=== PATIENT | male | born 1960 | race Caucasian/White ===

== ENCOUNTER 2018-05-10 00:43 | Inpatient (IN) | payer BC ==
[~2018-05-10] VITALS: Ht 170.2 cm; Wt 86.0 kg
[2018-05-10] VITALS (26 sets, daily range): BP systolic 105–136; BP diastolic 57–87
[2018-05-10] MEDS ORDERED: LORazepam 2MG/ML-1ML VIAL ONE (00:59)
[2018-05-10] MEDS ORDERED: LORazepam 2MG/ML-1ML VIAL IV ONE (01:00)
[2018-05-10] MEDS ORDERED: ASPirin 81 mg TAB ONE (01:03)
[2018-05-10] MEDS ORDERED: ENOXAPARIN SOD 100 MG/1 ML SYRINGE SC ONE (01:04)
[2018-05-10] MEDS ORDERED: ONDANSETRON HCL 4 MG/2 ML VIAL ONE ×2 (01:06→04:15)
[2018-05-10] MEDS ORDERED: MORPHINE SULFATE 4 MG/ML SYR/VIAL ONE (01:06)
[2018-05-10] MEDS ORDERED: AMIODARONE HCL 900 MG IV ONE ×2 (01:19→23:18)
[2018-05-10] MEDS ORDERED: IODIXANOL 320MG/ML 100ML BTL IV ONE ×2 (01:27→02:20)
[2018-05-10] MEDS ORDERED: LIDOCAINE 2%HCL (LOCAL ANESTH.) INJ 10ml MDV ONE (01:27)
[2018-05-10] MEDS ORDERED: MIDAZOLAM HCL 1MG/1ML-2 ML VIAL ONE (01:29)
[2018-05-10] MEDS ORDERED: ATROPINE SULF 1 MG/10ml SYR ONE (01:29)
[2018-05-10] MEDS ORDERED: ANGIOMAX 250 MG VIAL IV ONE (01:29)
[2018-05-10] MEDS ORDERED: fentaNYL CITRATE 100 MCG/2 ML VL ONE (01:29)
[2018-05-10] MEDS ORDERED: SODIUM CHL 0.9% 50 ML ONE (01:29)
[2018-05-10] MEDS ORDERED: EPINEPHrine HCL 1 MG/10 ML SYRG ONE (01:29)
[2018-05-10] MEDS ORDERED: ENOXAPARIN SOD 60 MG/0.6 ML SYRINGE SC ONE (01:30)
[2018-05-10] MEDS ORDERED: AMIODARONE HCL 150 MG in D5W 5% 100 ML IV ONE (01:30)
[2018-05-10] MEDS ORDERED: AMIODARONE HCL 900 MG in DEXTROSE 500 ML IV SCH ×2 (01:30→07:30)
[2018-05-10] MEDS ORDERED: ENOXAPARIN SOD 30 MG/0.3 ML SYRINGE IV ONE (01:30)
[2018-05-10 01:33] LABS: INR 0.91 (0.9-1.15); Partial Thromboplastin Time 24.2 sec (23.78-33.04); Prothrombin Time 9.8 sec (9.27-12.13)
[2018-05-10 01:36] LABS: Albumin 3.2 g/dL (3.4-5.0); BUN/Creatinine Ratio 13.3; Calcium 8.3 mg/dL (8.5-10.1); Magnesium 2.2 mg/dL (1.6-2.6); Potassium 3.5 mmol/L (3.5-5.1)
[2018-05-10 01:42] LABS: Bilirubin, Total 0.3 mg/dL (0.2-1.0)
[2018-05-10 01:43] LABS: Basophils # (auto) 0 uL; Basophils % (auto) 0.3 % (0.0-2.0); Eosinophils # (auto) 0.2 uL; Eosinophils % (auto) 1.6 % (0.0-7.0); Hematocrit 44.1 % (41.0-53.0); Hemoglobin 14.6 g/dL (13.5-17.5); Lymphocytes % (auto) 54.2 % (10.0-50.0); Mean Corpuscular Hemoglobin 28.1 pg (28.0-32.0); Monocytes # (auto) 0.7 uL; Monocytes % (auto) 5.3 % (0.0-12.0); Neutrophils % (auto) 38.6 % (37.0-80.0); Nucleated Red Blood Cells % 0.1 %; Platelet Count (auto) 196 10^3/uL (140-450); Red Blood Cells 5.19 10^6/uL (4.5-5.90); Red Cell Distribution Width 14.4 % (11.8-14.3); White Blood Cell 12.9 10^3/uL (4.4-10.8)
[2018-05-10] MEDS: ONDANSETRON HCL 4 MG/2 ML VIAL ONE (01:53)
[2018-05-10] MEDS ORDERED: LIDOCAINE HCL 100 MG/5ML (2%) SYRG INJ IV ONE ×2 (02:02→18:14)
[2018-05-10] MEDS ORDERED: EPTIFIBATIDE INJ (2MG/ML) 10ML VIAL IV ONE (02:03)
[2018-05-10] MEDS ORDERED: ADENOSINE 6 MG/2 ML INJ IV ONE (02:04)
[2018-05-10] MEDS ORDERED: DOPamine 1600MCG/ML D5W 0 ML IV ONE (02:07)
[2018-05-10] MEDS ORDERED: TICAGRELOR 90 MG TAB ONE (02:48)
[2018-05-10] MEDS ORDERED: HEPARIN DRIP/D5W 100UNITS/ML 250 ML IV SCH (03:24)
[2018-05-10] MEDS ORDERED: DOCUSATE SOD 100 MG CAP PO PRN (03:30)
[2018-05-10 04:11] LABS: Basophils # (auto) 0 uL; Basophils % (auto) 0.3 % (0.0-2.0); Eosinophils # (auto) 0 uL; Eosinophils % (auto) 0.4 % (0.0-7.0); Hematocrit 41.4 % (41.0-53.0); Hemoglobin 13.4 g/dL (13.5-17.5); Lymphocytes # (auto) 1.3 uL; Lymphocytes % (auto) 13.2 % (10.0-50.0); Mean Corpuscular Hemoglobin 27.8 pg (28.0-32.0); Mean Corpuscular Hgb Conc. 32.5 g/dL (32.0-36.0); Mean Corpuscular Volume 85.6 fL (80.0-100.0); Monocytes # (auto) 0.4 uL; Monocytes % (auto) 3.8 % (0.0-12.0); Neutrophils % (auto) 82.3 % (37.0-80.0); Platelet Count (auto) 133 10^3/uL (140-450); Red Blood Cells 4.83 10^6/uL (4.5-5.90); Red Cell Distribution Width 14.2 % (11.8-14.3); White Blood Cell 9.8 10^3/uL (4.4-10.8)
[2018-05-10] MEDS ORDERED: ONDANSETRON HCL 4 MG/2 ML VIAL IV PRN (04:15)
[2018-05-10 04:28] LABS: BUN/Creatinine Ratio 14.8; Calcium 7.8 mg/dL (8.5-10.1); Potassium 4.1 mmol/L (3.5-5.1)
[2018-05-10 04:31] LABS: INR 1.77 (0.9-1.15); Prothrombin Time 18.3 sec (9.27-12.13)
[2018-05-10 04:39] LABS: Partial Thromboplastin Time 83.6 sec (23.78-33.04)
[2018-05-10] MEDS: ceFAZolin 1GM/50ML 50 ML IV SCH ×3 (07:26→21:56)
[2018-05-10] MEDS: HEPARIN DRIP/D5W 100UNITS/ML 250 ML IV SCH (08:54)
[2018-05-10] MEDS: ASPirin-EC 81 mg tab PO SCH (09:39)
[2018-05-10] MEDS: TICAGRELOR 90 MG TAB PO SCH ×2 (09:39→21:56)
[2018-05-10] MEDS: ACETAMINOPHEN 325 MG TAB PO PRN ×2 (09:39→20:00)
[2018-05-10] MEDS: FAMOTIDINE (10MG/ML) 2ML VL IV SCH ×2 (09:39→21:56)
[2018-05-10] MEDS: MORPHINE SULFATE 4 MG/ML SYR/VIAL IV PRN ×2 (11:00→13:47)
[2018-05-10] MEDS ORDERED: LORazepam 2MG/ML-1ML VIAL IV PRN (14:00)
[2018-05-10] MEDS: HYDROcodone-ACET 5/325MG TAB PO PRN ×2 (14:25→21:57)
[2018-05-10] MEDS ORDERED: AMIODARONE HCL (50 MG/ ML) 3 ML VIAL IV ONE (18:14)
[2018-05-10] MEDS ORDERED: DIGOXIN (250MCG/ML) 2 ML AMPULE IV ONE (19:00)
[2018-05-10] MEDS ORDERED: ATORVASTATIN 20 MG TAB PO SCH (22:00)
[2018-05-10 23:21] LABS: INR 0.93 (0.9-1.15); Partial Thromboplastin Time 28.9 sec (23.78-33.04)
[2018-05-11] VITALS (96 sets, daily range): BP systolic 97–143; BP diastolic 64–97
[2018-05-11] MEDS: ceFAZolin 1GM/50ML 50 ML IV SCH ×3 (05:22→22:00)
[2018-05-11 07:30] LABS: Basophils # (auto) 0.1 uL; Basophils % (auto) 0.7 % (0.0-2.0); Eosinophils # (auto) 0.1 uL; Eosinophils % (auto) 0.9 % (0.0-7.0); Hematocrit 41.3 % (41.0-53.0); Hemoglobin 13.6 g/dL (13.5-17.5); Lymphocytes # (auto) 2.1 uL; Lymphocytes % (auto) 22.1 % (10.0-50.0); Mean Corpuscular Hemoglobin 28.2 pg (28.0-32.0); Mean Corpuscular Volume 85.5 fL (80.0-100.0); Monocytes # (auto) 0.7 uL; Neutrophils # (auto) 6.5 uL; Neutrophils % (auto) 69.3 % (37.0-80.0); Nucleated Red Blood Cells % 0.1 %; Platelet Count (auto) 129 10^3/uL (140-450); Red Blood Cells 4.83 10^6/uL (4.5-5.90); Red Cell Distribution Width 14.4 % (11.8-14.3); White Blood Cell 9.4 10^3/uL (4.4-10.8)
[2018-05-11 07:38] LABS: INR 0.93 (0.9-1.15); Partial Thromboplastin Time 28.1 sec (23.78-33.04)
[2018-05-11 07:48] LABS: BUN/Creatinine Ratio 11.5; Calcium 8.2 mg/dL (8.5-10.1); Potassium 3.6 mmol/L (3.5-5.1)
[2018-05-11] MEDS: HEPARIN DRIP/D5W 100UNITS/ML 250 ML IV SCH (08:33)
[2018-05-11] MEDS: FAMOTIDINE (10MG/ML) 2ML VL IV SCH ×2 (10:03→21:46)
[2018-05-11] MEDS: TICAGRELOR 90 MG TAB PO SCH ×2 (10:05→21:47)
[2018-05-11] MEDS: ASPirin-EC 81 mg tab PO SCH (10:05)
[2018-05-11] MEDS ORDERED: AMIODARONE HCL 900 MG in DEXTROSE 500 ML IV SCH (13:30)
[2018-05-11] MEDS: HYDROcodone-ACET 5/325MG TAB PO PRN ×2 (16:17→20:18)
[2018-05-11] MEDS: PRAVASTATIN SODIUM 20 MG TAB PO SCH (21:47)
[2018-05-11] MEDS ORDERED: AMIODARONE HCL 200 MG TAB ONE (22:44)
[2018-05-11] MEDS ORDERED: AMIODARONE HCL 200 MG TAB PO ONE (22:45)
[2018-05-12] VITALS (38 sets, daily range): BP systolic 99–130; BP diastolic 59–84
[2018-05-12] MEDS ORDERED: MIDAZOLAM HCL 1MG/1ML-2 ML VIAL ONE ×2 (01:38→01:54)
[2018-05-12] MEDS ORDERED: LIDOCAINE 2% (LOCAL ANESTH.) PF 5ml SDV ONE (01:38)
[2018-05-12 04:09] LABS: Calcium 8.1 mg/dL (8.5-10.1); INR 0.97 (0.9-1.15); Partial Thromboplastin Time 27.6 sec (23.78-33.04); Potassium 3.7 mmol/L (3.5-5.1); Prothrombin Time 10.4 sec (9.27-12.13)
[2018-05-12 04:11] LABS: BUN/Creatinine Ratio 11.8; Basophils # (auto) 0 uL; Basophils % (auto) 0.2 % (0.0-2.0); Eosinophils # (auto) 0.1 uL; Eosinophils % (auto) 0.9 % (0.0-7.0); Hematocrit 39.6 % (41.0-53.0); Hemoglobin 13.4 g/dL (13.5-17.5); Lymphocytes % (auto) 26.9 % (10.0-50.0); Mean Corpuscular Hemoglobin 28.6 pg (28.0-32.0); Mean Corpuscular Hgb Conc. 33.8 g/dL (32.0-36.0); Mean Corpuscular Volume 84.6 fL (80.0-100.0); Monocytes # (auto) 0.6 uL; Monocytes % (auto) 7.5 % (0.0-12.0); Neutrophils # (auto) 4.8 uL; Neutrophils % (auto) 64.5 % (37.0-80.0); Nucleated Red Blood Cells % 0.3 %; Red Blood Cells 4.68 10^6/uL (4.5-5.90); Red Cell Distribution Width 14.2 % (11.8-14.3); White Blood Cell 7.4 10^3/uL (4.4-10.8)
[2018-05-12 04:12] LABS: Platelet Count (auto) 119 10^3/uL (140-450)
[2018-05-12] MEDS: HYDROcodone-ACET 5/325MG TAB PO PRN (04:20)
[2018-05-12] MEDS: ceFAZolin 1GM/50ML 50 ML IV SCH ×3 (05:27→22:43)
[2018-05-12] MEDS: ASPirin-EC 81 mg tab PO SCH (10:03)
[2018-05-12] MEDS: FAMOTIDINE (10MG/ML) 2ML VL IV SCH ×2 (10:03→22:43)
[2018-05-12] MEDS: TICAGRELOR 90 MG TAB PO SCH ×2 (10:04→22:44)
[2018-05-12] MEDS: AMIODARONE HCL 200 MG TAB PO SCH ×2 (10:55→22:44)
[2018-05-12] MEDS: PRAVASTATIN SODIUM 20 MG TAB PO SCH (22:44)
[2018-05-13 05:05] VITALS: BP 117/70
[2018-05-13] MEDS: ceFAZolin 1GM/50ML 50 ML IV SCH (05:33)
[2018-05-13 05:43] LABS: Basophils # (auto) 0 uL; Basophils % (auto) 0.4 % (0.0-2.0); Eosinophils # (auto) 0.1 uL; Eosinophils % (auto) 1.1 % (0.0-7.0); Hematocrit 41.9 % (41.0-53.0); Hemoglobin 14.3 g/dL (13.5-17.5); Lymphocytes # (auto) 1.6 uL; Lymphocytes % (auto) 17.8 % (10.0-50.0); Mean Corpuscular Hgb Conc. 34.2 g/dL (32.0-36.0); Mean Corpuscular Volume 84.7 fL (80.0-100.0); Monocytes # (auto) 0.6 uL; Monocytes % (auto) 6.3 % (0.0-12.0); Neutrophils # (auto) 6.6 uL; Neutrophils % (auto) 74.4 % (37.0-80.0); Nucleated Red Blood Cells % 0.4 %; Platelet Count (auto) 133 10^3/uL (140-450); Red Blood Cells 4.95 10^6/uL (4.5-5.90); Red Cell Distribution Width 14.4 % (11.8-14.3); White Blood Cell 8.9 10^3/uL (4.4-10.8)
[2018-05-13 05:55] LABS: INR 0.96 (0.9-1.15); Partial Thromboplastin Time 28.5 sec (23.78-33.04); Prothrombin Time 10.3 sec (9.27-12.13)
[2018-05-13 06:01] LABS: BUN/Creatinine Ratio 13.3; Calcium 8.2 mg/dL (8.5-10.1); Potassium 3.7 mmol/L (3.5-5.1)
[2018-05-13 08:00] VITALS: BP 108/70
[2018-05-13 08:16] VITALS: BP 104/63
[2018-05-13] MEDS: FAMOTIDINE (10MG/ML) 2ML VL IV SCH ×2 (10:10→22:12)
[2018-05-13] MEDS: TICAGRELOR 90 MG TAB PO SCH ×2 (10:10→22:12)
[2018-05-13] MEDS: AMIODARONE HCL 200 MG TAB PO SCH ×2 (10:13→22:12)
[2018-05-13] MEDS: ASPirin-EC 81 mg tab PO SCH (10:13)
[2018-05-13 12:48] VITALS: BP 113/58
[2018-05-13 16:18] VITALS: BP 111/72
[2018-05-13] MEDS ORDERED: POTASSIUM CHL 20 Meq TABLET PO ONE (17:30)
[2018-05-13] MEDS ORDERED: ATORVASTATIN 20 MG TAB PO SCH (22:00)
[2018-05-13 23:12] VITALS: BP 111/71
[2018-05-14 04:06] VITALS: BP 107/72
[2018-05-14 09:23] VITALS: BP 109/71
[2018-05-14] MEDS: AMIODARONE HCL 200 MG TAB PO SCH (10:07)
[2018-05-14] MEDS: FAMOTIDINE (10MG/ML) 2ML VL IV SCH (10:07)
[2018-05-14] MEDS: ASPirin-EC 81 mg tab PO SCH (10:07)
[2018-05-14] MEDS: TICAGRELOR 90 MG TAB PO SCH (10:08)
[2018-05-14 13:00] VITALS: BP 106/73
[2018-05-14] MEDS ORDERED: CLOPIDOGREL 300 MG TAB PO ONE (14:45)
[2018-05-14 16:41] VITALS: BP 106/73
[2018-05-14 17:29] VITALS: BP 107/70
[2018-05-15] MEDS ORDERED: MORPHINE SULFATE 4 MG/ML SYR/VIAL IV ONE (13:30)
== END 2018-05-14 17:19 | disposition home or self-care (01) | DRG 270 ==
LOC: ER 00:43 → OVERFLOW 00:44 → TELE-WESTW 01:40 → ICU WEST 03:07 → TELE-WESTW 05-12 21:05
PROVIDERS: ADMIT Specialist; ATTEND Hospitalist
PROC: 02C03ZZ Extirpation of Matter from Coronary Artery, One Artery, Percutaneous Approach (ICD-10-PCS; principal; 2018-05-10)
PROC: 5A02210 Assistance with Cardiac Output using Balloon Pump, Continuous (ICD-10-PCS; 2018-05-10)
PROC: 027035Z Dilation of Coronary Artery, One Artery with Two Drug-eluting Intraluminal Devices, Percutaneous Approach (ICD-10-PCS; 2018-05-10)
PROC: 3E073PZ Introduction of Platelet Inhibitor into Coronary Artery, Percutaneous Approach (ICD-10-PCS; 2018-05-10)
PROC: 4A023N7 Measurement of Cardiac Sampling and Pressure, Left Heart, Percutaneous Approach (ICD-10-PCS; 2018-05-10)
PROC: B2111ZZ Fluoroscopy of Multiple Coronary Arteries using Low Osmolar Contrast (ICD-10-PCS; 2018-05-10)
DX: I21.09 ST elevation (STEMI) myocardial infarction involving other coronary artery of anterior wall (principal); I49.01 Ventricular fibrillation; J96.21 Acute and chronic respiratory failure with hypoxia; R57.0 Cardiogenic shock; N17.9 Acute kidney failure, unspecified; F17.210 Nicotine dependence, cigarettes, uncomplicated; F10.20 Alcohol dependence, uncomplicated; M54.9 Dorsalgia, unspecified; I10 Essential (primary) hypertension; I25.10 Atherosclerotic heart disease of native coronary artery without angina pectoris; I25.82 Chronic total occlusion of coronary artery; I48.91 Unspecified atrial fibrillation; J44.9 Chronic obstructive pulmonary disease, unspecified; I25.2 Old myocardial infarction; Z79.899 Other long term (current) drug therapy; Z79.82 Long term (current) use of aspirin
CPT/HCPCS: 33967; 36415; 71045; 80048; 80053; 82962; 83735; 83880; 84484; 85025; 85379; 85610; 85730; 87081; 87086; 92928; 92973; 93005; 93306; 93458; 96365; 96375; 99152; 99291; A6257; C1874; G0378; J0153; J0690; J2001; J2250; J2405; J3490; J7060; Q9967

== ENCOUNTER 2018-05-18 13:18 | Emergency (ER) | payer SELFPAY ==
[~2018-05-18] VITALS: Ht 182.9 cm; Wt 79.4 kg
[2018-05-18] MEDS ORDERED: MORPHINE SULFATE 4 MG/ML SYR/VIAL IV ONE (13:30)
[2018-05-18] MEDS ORDERED: ONDANSETRON HCL 4 MG/2 ML VIAL IV ONE (13:30)
[2018-05-18 14:02] LABS: Basophils # (auto) 0 uL; Basophils % (auto) 0.6 % (0.0-2.0); Eosinophils # (auto) 0.1 uL; Eosinophils % (auto) 1.8 % (0.0-7.0); Hematocrit 43.1 % (41.0-53.0); Lymphocytes # (auto) 2.6 uL; Lymphocytes % (auto) 37.5 % (10.0-50.0); Mean Corpuscular Hemoglobin 27.5 pg (28.0-32.0); Mean Corpuscular Hgb Conc. 32.6 g/dL (32.0-36.0); Mean Corpuscular Volume 84.3 fL (80.0-100.0); Monocytes # (auto) 0.4 uL; Monocytes % (auto) 6.3 % (0.0-12.0); Neutrophils # (auto) 3.8 uL; Neutrophils % (auto) 53.8 % (37.0-80.0); Nucleated Red Blood Cells % 0.1 %; Platelet Count (auto) 208 10^3/uL (140-450); Red Blood Cells 5.11 10^6/uL (4.5-5.90)
[2018-05-18 14:19] LABS: Albumin 3.3 g/dL (3.4-5.0); Calcium 8.4 mg/dL (8.5-10.1); Magnesium 2.4 mg/dL (1.6-2.6); Potassium 4.1 mmol/L (3.5-5.1)
[2018-05-18 14:20] LABS: INR 1.03 (0.9-1.15)
[2018-05-18 14:23] LABS: BUN/Creatinine Ratio 16.2; Bilirubin, Total 0.5 mg/dL (0.2-1.0); Total Protein 7.4 g/dL (6.4-8.2)
[2018-05-18 15:04] VITALS: BP 104/70
[2018-05-18] MEDS ORDERED: SODIUM CHLORIDE 0.9% 500 ML IV ONE (16:45)
== END 2018-05-18 17:06 | disposition home or self-care (01) ==
LOC: ER 13:20
DX: I24.9 Acute ischemic heart disease, unspecified (principal); R79.89 Other specified abnormal findings of blood chemistry; I25.2 Old myocardial infarction; J44.9 Chronic obstructive pulmonary disease, unspecified; I10 Essential (primary) hypertension; E78.5 Hyperlipidemia, unspecified; F17.210 Nicotine dependence, cigarettes, uncomplicated; Z98.61 Coronary angioplasty status
CPT/HCPCS: 36415; 71045; 80053; 83735; 83880; 84484; 85025; 85610; 85730; 93005; 94761; 96374; 96375; 99285; J2270; J2405; J7040; 96361

== ENCOUNTER 2019-06-01 20:12 | Emergency (ER) | payer MEDICAID, OTHER ==
[~2019-06-01] VITALS: Ht 182.9 cm; Wt 81.6 kg
[2019-06-01 21:29] LABS: Basophils # (auto) 0 uL; Basophils % (auto) 0.4 % (0.0-2.0); Eosinophils # (auto) 0.2 uL; Eosinophils % (auto) 2.4 % (0.0-7.0); Hematocrit 39.9 % (41.0-53.0); Hemoglobin 13.6 g/dL (13.5-17.5); Lymphocytes # (auto) 2.6 uL; Lymphocytes % (auto) 39.6 % (10.0-50.0); Mean Corpuscular Hemoglobin 28.5 pg (28.0-32.0); Mean Corpuscular Volume 83.8 fL (80.0-100.0); Monocytes # (auto) 0.5 uL; Monocytes % (auto) 7.2 % (0.0-12.0); Neutrophils # (auto) 3.3 uL; Neutrophils % (auto) 50.4 % (37.0-80.0); Nucleated Red Blood Cells % 0.2 %; Platelet Count (auto) 161 10^3/uL (140-450); Red Blood Cells 4.76 10^6/uL (4.5-5.90); White Blood Cell 6.6 10^3/uL (4.4-10.8)
[2019-06-01 21:39] LABS: Anion Gap 8 (5-15); Blood Urea Nitrogen 14 mg/dL (7-18); Carbon Dioxide 23 mmol/L (21-32); Chloride 109 mmol/L (98-107); Glucose 163 mg/dL (74-106); Potassium 3.8 mmol/L (3.5-5.1); Sodium 140 mmol/L (136-145)
[2019-06-01 21:41] LABS: Alanine Aminotransferase 40 U/L (16-61); Aspartate Aminotransferase 19 U/L (15-37); BUN/Creatinine Ratio 13.3; GFR African American 93 mL/min; GFR Non-African American 77 mL/min; Magnesium 2.2 mg/dL (1.6-2.6)
[2019-06-01 21:46] LABS: Alkaline Phosphatase 87 U/L (45-117); Bilirubin, Total 0.3 mg/dL (0.2-1.0); Total Protein 6.8 g/dL (6.4-8.2)
[2019-06-02 00:21] LABS: Urine WBC None Seen /hpf (0 - 3)
[2019-06-02 00:39] LABS: Urine Bacteria NONE SEEN /hpf (None Seen); Urine Blood Negative /uL (Negative); Urine Mucus FEW (None Seen); Urine Specific Gravity 1.025 (1.001-1.035)
[2019-06-02 01:00] VITALS: BP 132/79
== END 2019-06-02 02:30 | disposition home or self-care (01) ==
LOC: ER 20:12
DX: R07.89 Other chest pain (principal); R73.9 Hyperglycemia, unspecified; R42 Dizziness and giddiness; E78.5 Hyperlipidemia, unspecified; I10 Essential (primary) hypertension; I25.2 Old myocardial infarction; F17.210 Nicotine dependence, cigarettes, uncomplicated; Z98.61 Coronary angioplasty status
CPT/HCPCS: 36415; 71045; 80053; 81001; 82962; 83036; 83735; 83880; 84484; 85025; 93005

== ENCOUNTER 2019-07-21 10:06 | Emergency (ER) | payer MEDICAID ==
[~2019-07-21] VITALS: Ht 182.9 cm; Wt 83.9 kg
[2019-07-21 11:14] LABS: Basophils # (auto) 0 uL; Basophils % (auto) 0.6 % (0.0-2.0); Eosinophils # (auto) 0.1 uL; Eosinophils % (auto) 2.4 % (0.0-7.0); Hematocrit 39.3 % (41.0-53.0); Hemoglobin 13.2 g/dL (13.5-17.5); Lymphocytes % (auto) 37.2 % (10.0-50.0); Mean Corpuscular Hemoglobin 27.9 pg (28.0-32.0); Mean Corpuscular Hgb Conc. 33.5 g/dL (32.0-36.0); Mean Corpuscular Volume 83.2 fL (80.0-100.0); Monocytes # (auto) 0.3 uL; Monocytes % (auto) 6.3 % (0.0-12.0); Neutrophils # (auto) 2.8 uL; Neutrophils % (auto) 53.5 % (37.0-80.0); Nucleated Red Blood Cells % 0.1 %; Platelet Count (auto) 143 10^3/uL (140-450); Red Blood Cells 4.72 10^6/uL (4.5-5.90); Red Cell Distribution Width 14.2 % (11.8-14.3); White Blood Cell 5.3 10^3/uL (4.4-10.8)
[2019-07-21 11:35] LABS: INR 1.01 (0.9-1.15); Partial Thromboplastin Time 26.3 sec (23.64-32.05)
[2019-07-21 11:53] LABS: Albumin 3.2 g/dL (3.4-5.0); Anion Gap 4 (5-15); Blood Urea Nitrogen 11 mg/dL (7-18); Calcium 8.3 mg/dL (8.5-10.1); Carbon Dioxide 29 mmol/L (21-32); Chloride 108 mmol/L (98-107); Glucose 129 mg/dL (74-106); Sodium 141 mmol/L (136-145)
[2019-07-21 11:59] LABS: Alanine Aminotransferase 38 U/L (16-61); Alkaline Phosphatase 79 U/L (45-117); Aspartate Aminotransferase 20 U/L (15-37); BUN/Creatinine Ratio 12.1; Bilirubin, Total 0.3 mg/dL (0.2-1.0); GFR African American 110 mL/min; GFR Non-African American 91 mL/min; Total Protein 6.7 g/dL (6.4-8.2)
[2019-07-21] MEDS ORDERED: NITROGLYCERIN 0.4 MG SL TAB SL ONE (13:00)
[2019-07-21 16:01] VITALS: BP 113/79
== END 2019-07-21 16:17 | disposition home or self-care (01) ==
LOC: ER 10:06
DX: R07.89 Other chest pain (principal); R10.9 Unspecified abdominal pain; I25.10 Atherosclerotic heart disease of native coronary artery without angina pectoris; I10 Essential (primary) hypertension; J44.9 Chronic obstructive pulmonary disease, unspecified; E78.5 Hyperlipidemia, unspecified; I25.2 Old myocardial infarction; Z87.891 Personal history of nicotine dependence
CPT/HCPCS: 36415; 71046; 80053; 82962; 84484; 85025; 85610; 85730; 93005

== ENCOUNTER 2023-07-31 19:34 | Emergency (ER) | payer MEDICAID ==
[~2023-07-31] VITALS: Ht 182.9 cm; Wt 81.5 kg
[2023-07-31 19:58] VITALS: BP 127/82; PULSE 67; RESP 18; O2SAT 97
== END 2023-07-31 21:34 | disposition left against medical advice (07) ==
LOC: ER 19:34
DX: R04.0 Epistaxis (principal); J44.9 Chronic obstructive pulmonary disease, unspecified; E78.5 Hyperlipidemia, unspecified; I10 Essential (primary) hypertension; Z87.891 Personal history of nicotine dependence